=== PATIENT | female | born 1955 | race American Indian/Alaskan Native ===

== ENCOUNTER 2017-05-14 14:04 | Inpatient (IN) | payer MEDICARE, MEDICAID ==
[2017-05-14 14:04] VITALS: BMI 43.2
--- NOTE | 2017-05-14 15:16 | C.PDOC ---
History Of Present Illness <Ciarra Tracy - Last Filed: 05/14/17 19:36> <Wendy Raotoan - Last Filed: 05/14/17 22:02> 61yo female with history of HTN, diabetes, GERD, presents to ED for evaluation of abdominal pain, described as a burning sesnation for the past week. Patient was seen by Dr. Matthews who informed her to come to ER for further evaluation. Patient reports her pain is intermittently present, 15 seconds at a time. She also reports associated intermittent episodes of vomiting, diarrhea and constipation and states over the past 2 days, she has not had any bowel movements. She has no other medical complaints. (Wendy Tracyerie) History Per: Patient History/Exam Limitations: no limitations Onset/Duration Of Symptoms: Days (7) Current Symptoms Are (Timing): Still Present Location Of Pain/Discomfort: Epigastric Quality Of Discomfort: Burning, "Pain" Associated Symptoms: Vomiting, Diarrhea, Constipation Last Bowel Movement: Days Ago (2) Additional History Per: Patient <Ciarra Tracy - Last Filed: 05/14/17 19:36> <Lyla Rao - Last Filed: 05/14/17 22:02> Time Seen by Provider: 05/14/17 14:53 Chief Complaint (Nursing): Abdominal Pain Past Medical History Reviewed: Historical Data, Nursing Documentation, Vital Signs - Medical History PMH: Anxiety, Arthritis, Depression, Diabetes, HTN, Hypercholesterolemia, Sleep Apnea (USES C PAP) Denies: Chronic Kidney Disease Surgical History: No Surg Hx Family History: States: Unknown Family Hx - Social History Hx Tobacco Use: Yes Hx Alcohol Use: Yes Hx Substance Use: Yes - Immunization History Hx Tetanus Toxoid Vaccination: Yes Hx Influenza Vaccination: Yes Hx Pneumococcal Vaccination: Yes <Ciarra Tracy - Last Filed: 05/14/17 19:36> Vital Signs: Last Vital Signs Temp 98.4 F 05/14/17 14:11 Pulse 61 05/14/17 20:56 Resp 18 05/14/17 20:56 BP 131/68 05/14/17 20:56 Pulse Ox 99 05/14/17 20:56 - [facility] Procedures ENDOSC POLYPECTOMY OF LG INTEST (11/06/13) Review Of Systems Except As Marked, All Systems Reviewed And Found Negative. Constitutional: Negative for: Fever, Chills Gastrointestinal: Positive for: Vomiting, Abdominal Pain, Diarrhea, Constipation <Ciarra Tracy - Last Filed: 05/14/17 19:36> Physical Exam - Physical Exam Appears: Non-toxic Skin: Normal Color, Warm Head: Atraumatic, Normacephalic Eye(s): bilateral: Normal Inspection Nose: Normal Neck: Supple Chest: Symmetrical Cardiovascular: Rhythm Regular Respiratory: Normal Breath Sounds Gastrointestinal/Abdominal: Soft, Tenderness (right upper quadrant and epigastric tenderness to palpation) Neurological/Psych: Oriented x3, Normal Speech <Ciarar Tracy - Last Filed: 05/14/17 19:36> ED Course And Treatment - Laboratory Results Result Diagrams: 05/14/17 15:37 05/14/17 15:37 O2 Sat by Pulse Oximetry: 100 (RA) Pulse Ox Interpretation: Normal <Ciarra Tracy Last Filed: 05/14/17 19:36> - Laboratory Results Result Diagrams: 05/14/17 15:37 05/14/17 15:37 Pulse Ox Interpretation: Normal Progress Note: spoke with dr [email or web address]. ok to admit and will see the pt in am <Lyla Rao - Last Filed: 05/14/17 22:02> Medical Decision Making <Ciarra Tracy - Last Filed: 05/14/17 19:36> <Lyla Rao - Last Filed: 05/14/17 22:02> Medical Decision Making: Impression: Abdominal pain Plan: -- Labs -- US Abdomen -- IV Fluids -- Protonix 40 mg IVP -- Toradol 30 mg IVP Time: 1616 HISTORY: epigastric and RUQ pain COMPARISON: None. TECHNIQUE: Sonographic evaluation of the right upper quadrant of the abdomen. FINDINGS: LIVER: Enlarged, measuring 20.1 cm in length. Increased echogenicity of the liver parenchyma. No mass. No intrahepatic bile duct dilatation. GALLBLADDER: Unremarkable. No gallstones. COMMON BILE DUCT: Measures 6 mm. No stones. No dilatation. PANCREAS: Not well-visualized. RIGHT KIDNEY: Measures 9.7 x 4.8 x 4.5 cm in length. Normal echogenicity. No calculus, mass, or hydronephrosis. AORTA: No aneurysmal dilatation. IVC: Unremarkable. OTHER FINDINGS: None . IMPRESSION: Hepatomegaly with steatosis No evidence of cholelithiasis. (Ciarra Tracy) Disposition - Disposition Disposition Time: 19:37 <Ciarra Tracy - Last Filed: 05/14/17 19:36> Discussed With : Criss Bartlett Comment: accepted the pt on his service and took over the care at 9:30 PM Doctor Will See Patient In The: Hospital Counseled Patient/Family Regarding: Studies Performed, Diagnosis - POA Present On Arrival: Poor Glycemic Control <Lyla Rao - Last Filed: 05/14/17 22:02> - Disposition Disposition: HOSPITALIZED Condition: FAIR Forms: [facility] (Faroese) - Clinical Impression Clinical Impression: Abdominal pain, Nausea, Vomiting, Diarrhea - PA / CHIEF OF SAFETY AND PROTECTION / Resident Statement MD/DO has reviewed & agrees with the documentation as recorded. - Scribe Statement The provider has reviewed the documentation as recorded by the Scribe <Ciarra Tracy - Last Filed: 05/14/17 19:36> <Lyla Rao - Last Filed: 05/14/17 22:02> - Scribe Statement Jenifer Haines Provider Scribe Attestation: All medical record entries made by the Scribe were at my direction and personally dictated by me. I have reviewed the chart and agree that the record accurately reflects my personal performance of the history, physical exam, medical decision making, and the department course for this patient. I have also personally directed, reviewed, and agree with the discharge instructions and disposition. (Ciarra Tracy) Physician Patient Turnover Patient Signed Over To: Lyla Rao Handoff Comments: pending CT and dispo <Ciarra Tracy - Last Filed: 05/14/17 19:36> Decision To Admit <Ciarra Tracy - Last Filed: 05/14/17 19:36> - Pt Status Changed To: Hospital Disposition Of: Inpatient - Admit Certification Admit to Inpatient:: After my assessment, the patient will require hospitalization for at least two midnights. This is because of the severity of symptoms shown, intensity of services needed, and/or the medical risk in this patient being treated as an outpatient. - InPatient: Physician Admission Certification:: After my assessment, the patient will require hospitalization for at least two midnights. This is because of the severity of symptoms shown, intensity of services needed, and/or the medical risk in this patient being treated as an outpatient. - . Bed Request Type: Regular Admitting Physician: Criss Bartlett <Lyla Rao - Last Filed: 05/14/17 22:02> - . Patient Diagnosis: Abdominal pain, Nausea, Vomiting, Diarrhea
[2017-05-14] MEDS ORDERED: Sodium Chloride 0.9% 1,000 ML IV STA (15:20)
[2017-05-14] MEDS ORDERED: Sodium Chloride 0.9% 1,000 ML ONE (15:46)
[2017-05-14 15:51] LABS: BASO % 0.4 % (0.0-2.0); EOS # 0.1 K/uL (0.0-0.7); HEMOGLOBIN 12.1 g/dL (11.0-16.0); LYMPH # 2.5 K/uL (1.0-4.3); LYMPH % 36.5 % (20.0-40.0); MEAN CELL VOLUME 85.1 fL (81.0-99.0); MEAN CORPUSCULAR HEMOGLOBIN 27.6 pg (27.0-31.0); MEAN CORPUSCULAR HGB CONC 32.5 g/dL (33.0-37.0); MEAN PLATELET VOLUME 9.3 fL (7.2-11.7); MONO # 0.4 K/uL (0.0-0.8); NEUT # 3.8 K/uL (1.8-7.0); NEUT % 55.1 % (50.0-75.0); RBC 4.38 Mil/uL (3.80-5.20); RED CELL DISTRIBUTION WIDTH 14.7 % (11.5-14.5); WHITE BLOOD COUNT 6.9 K/uL (4.8-10.8)
[2017-05-14 16:05] LABS: SQUAMOUS EPITHIAL 4 /hpf (0-5); URINE BACTERIA RARE (<OCC); URINE BILIRUBIN NEGATIVE (NEGATIVE); URINE BLOOD NEGATIVE (NEGATIVE); URINE CLARITY Clear (Clear); URINE COLOR Yellow (YELLOW); URINE GLUCOSE (UA) NORMAL (Normal); URINE LEUKOCYTE ESTERASE 3+ Leu/uL (Negative); URINE NITRATE NEGATIVE (NEGATIVE); URINE PROTEIN NEGATIVE (NEGATIVE); URINE UROBILINOGEN NORMAL mg/dL (0.2-1.0)
--- NOTE | 2017-05-14 16:18 | US ---
HISTORY: epigastric and RUQ pain COMPARISON: None. TECHNIQUE: Sonographic evaluation of the right upper quadrant of the abdomen. FINDINGS: LIVER: Enlarged, measuring 20.1 cm in length. Increased echogenicity of the liver parenchyma. No mass. No intrahepatic bile duct dilatation. GALLBLADDER: Unremarkable. No gallstones. COMMON BILE DUCT: Measures 6 mm. No stones. No dilatation. PANCREAS: Not well-visualized. RIGHT KIDNEY: Measures 9.7 x 4.8 x 4.5 cm in length. Normal echogenicity. No calculus, mass, or hydronephrosis. AORTA: No aneurysmal dilatation. IVC: Unremarkable. OTHER FINDINGS: None . IMPRESSION: Hepatomegaly with steatosis No evidence of cholelithiasis.
[2017-05-14 16:40] LABS: INR 0.9; PROTHROMBIN TIME 10.5 SECONDS (9.7-12.2)
[2017-05-14 16:48] LABS: ALB/GLOB RATIO 1.1 (1.0-2.1); ALBUMIN 3.9 g/dL (3.5-5.0); ALT/SGPT 36 U/L (9-52); AST/SGOT 33 U/L (14-36); BLOOD UREA NITROGEN 8 mg/dL (7-17); CALCIUM 9.5 mg/dl (8.6-10.4); GFR AFRICAN-AMERICAN > 60; GFR NON-AFRICAN AMERICAN > 60; LIPASE 51 U/L (23-300)
[2017-05-14] MEDS ORDERED: Iodixanol 320 MG/ML 100 ML BOTTLE IV ONE (19:09)
--- NOTE | 2017-05-14 20:48 | CT ---
EXAM: CT Abdomen and Pelvis With Intravenous Contrast CLINICAL HISTORY: 61 years old, female; Pain; Abdominal pain; Generalized; Additional info: Abd pain, vomiting, diarrhea x 1 wk TECHNIQUE: Axial computed tomography images of the abdomen and pelvis with intravenous contrast. All CT scans at this facility use one or more dose reduction techniques, viz.: automated exposure control; ma/kV adjustment per patient size (including targeted exams where dose is matched to indication; i.e. head); or iterative reconstruction technique. Coronal and sagittal reformatted images were created and reviewed. CONTRAST: 100 mL of visipaque 320 administered intravenously. COMPARISON: No relevant prior studies available. FINDINGS: Lower thorax: No acute findings. ABDOMEN: Liver: Fatty infiltration. Gallbladder and bile ducts: Questionable gallstones vs artifact. No significant ductal dilation. Pancreas: Minimal haziness/stranding about head of pancreas/duodenum. No ductal dilation. Spleen: No splenomegaly. Adrenals: No mass. Kidneys and ureters: No mass. No hydronephrosis. Stomach and bowel: No definite mural thickening. No obstruction. Appendix: Normal caliber. No inflammation. PELVIS: Bladder: Unremarkable. Reproductive: Unremarkable as visualized. ABDOMEN and PELVIS: Intraperitoneal space: No significant fluid collection. No free air. Bones/joints: Degenerative changes of spine. No acute fracture. Soft tissues: Tiny umbilical hernia containing fat/sidewall of. Vasculature: Minimal atherosclerotic disease of aorta. No aneurysm. Lymph nodes: No pathologically enlarged lymph nodes. IMPRESSION: 1. Minimal haziness/stranding about head of pancreas/duodenum. Findings may represent pancreatitis and/or duodenitis. Correlate with laboratory values. 2. Incidental/non-acute findings are described above.
[2017-05-14] MEDS ORDERED: HYDROmorphone 1 mg/ml ISec IVP PRN (21:57)
[2017-05-14] MEDS: Dextrose 5%/0.45% NS 1,000 ML IV SCH (22:28)
[2017-05-15] MEDS: Dextrose 5%/0.45% NS 1,000 ML IV SCH ×3 (05:37→22:27)
[2017-05-15 08:07] VITALS: RESP 20
--- NOTE | 2017-05-15 09:10 | CP.PCM.CON ---
History of Present Illness - History of Present Illness History of Present Illness: This is a 61 year old woman with abdominal pain. Patient has a history of colon polyps diagnosed on colonoscopy 11/06/13. In addition, she was evaluated for heartburn with EGD and found to have erosive esophagitis, hiatal hernia and non-erosive gastritis. She was seen with intermittent diarrhea thought to be related to IBS. She presented to the office on the day of admission with a one week history of diarrhea, up to ten times a day, soft to watery, which abated two days prior to admission. She has not had a bowel movement in the past two days. The diarrhea was accompanied by nausea and vomiting. six or seven times a day. She also reports having epigastric pain, burning/cramping, lasting only a few minutes at a time, and recurring every 30 minutes. She denies having rectal bleeding. She denies having heartburn or difficulty swallowing. Evaluation in the ER showed normal blood tests. A sonogram showed fatty liver but no gallstones or biliary dilatation. CT scan showed "minimal stranding about head of pancreas/duodenum." She was admitted for observation. Review of Systems - Review of Systems All systems: reviewed and no additional remarkable complaints except - Constitutional Constitutional: Weight Loss. absent: Anorexia, Chills, Fever - Cardiovascular Cardiovascular: absent: Chest Pain - Respiratory Respiratory: absent: Dyspnea - Gastrointestinal Gastrointestinal: Abdominal Pain, Constipation, Diarrhea, Nausea, Vomiting. 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) - HEENT Hx HEENT Problems: No - RENAL Hx Chronic Kidney Disease: No - ENDOCRINE/METABOLIC Hx Diabetes Mellitus Type 2: Yes - HEMATOLOGICAL/ONCOLOGICAL Hx Blood Disorders: No - INTEGUMENTARY Hx Dermatological Problems: No - MUSCULOSKELETAL/RHEUMATOLOGICAL Hx Arthritis: Yes Hx Falls: No - GASTROINTESTINAL Hx Gastrointestinal Disorders: No Hx Gastroesophageal Reflux: Yes - GENITOURINARY/GYNECOLOGICAL Hx Genitourinary Disorders: No - PSYCHIATRIC Hx Anxiety: Yes Hx Depression: Yes Hx Substance Use: Yes - SURGICAL HISTORY Hx Surgeries: Yes Hx Musculoskeletal Surgery: Yes (RIGHT ROTATOR CUFF REPAIR) Hx Orthopedic Surgery: Yes (RIGHT TRIGGER FINGER RELEASE) Hx Vascular Surgery: Yes (BRAIN ANEURYSM WITH CLIP PLACEMENT) - ANESTHESIA Hx Anesthesia: Yes Hx Anesthesia Reactions: No Hx Malignant Hyperthermia: No Meds Allergies/Adverse Reactions: Allergies Allergy/AdvReac Type Severity Reaction Status Date / Time No Known Allergies Allergy Verified 11/04/13 17:22 - Medications Medications: Current Medications Enoxaparin Sodium (Lovenox) 40 mg SC DAILY [facility] Hydromorphone HCl (Dilaudid) 1 mg IVP Q4H PRN PRN Reason: Pain, severe (8-10) Dextrose/Sodium Chloride (Dextrose 5%/0.45% Ns 1000 Ml) 1,000 mls @ 125 mls/hr IV .Q8H [facility] Last Admin: 05/15/17 05:37 Dose: Not Given Pantoprazole Sodium (Protonix Inj) 40 mg IVP DAILY [facility] Physical Exam - Constitutional Appears: No Acute Distress - Head Exam Head Exam: ATRAUMATIC, NORMOCEPHALIC - Eye Exam Eye Exam: EOMI, PERRL - Neck Exam Neck exam: Negative for: Lymphadenopathy, Thyromegaly - Respiratory Exam Respiratory Exam: NORMAL BREATHING PATTERN. absent: Rales, Rhonchi, Wheezes - Cardiovascular Exam Cardiovascular Exam: REGULAR RHYTHM, +S1, +S2. absent: Gallop, Rubs, Systolic Murmur - GI/Abdominal Exam GI & Abdominal Exam: Normal Bowel Sounds, Soft. absent: Mass, Organomegaly, Tenderness - Rectal Exam Rectal Exam: Deferred - Extremities Exam Extremities exam: Negative for: calf tenderness, pedal edema Results - Vital Signs Recent Vital Signs: Last Vital Signs Temp 98 F 05/15/17 08:06 Pulse 72 05/15/17 08:06 Resp 20 05/15/17 08:06 BP 118/62 05/15/17 08:06 Pulse Ox 96 05/15/17 08:06 - Labs Result Diagrams: 05/14/17 15:37 05/14/17 15:37 Labs: Laboratory Results - last 24 hr 05/14/17 05/14/17 05/14/17 15:37 15:37 15:44 WBC 6.9 RBC 4.38 Hgb 12.1 Hct 37.3 MCV 85.1 MCH 27.6 MCHC 32.5 L RDW 14.7 H Plt Count 314 MPV 9.3 Neut % (Auto) 55.1 Lymph % (Auto) 36.5 [place] % (Auto) 6.0 Eos % (Auto) 2.0 Baso % (Auto) 0.4 Neut # 3.8 Lymph # 2.5 [place] # 0.4 Eos # 0.1 Baso # 0.0 PT INR APTT Sodium 136 Potassium 4.8 Chloride 100 Carbon Dioxide 28 Anion Gap 13 BUN 8 Creatinine 0.8 Est GFR ( Amer) > 60 Est GFR (Non-Af Amer) > 60 POC Glucose (mg/dL) Random Glucose 133 H Calcium 9.5 Total Bilirubin 0.4 AST 33 ALT 36 Alkaline Phosphatase 67 Total Protein 7.4 Albumin 3.9 Globulin 3.5 Albumin/Globulin Ratio 1.1 Lipase 51 Urine Color Yellow Urine Clarity Clear Urine pH 5.0 Ur Specific [place] 1.015 Urine Protein Negative Urine Glucose (UA) Normal Urine Ketones Negative Urine Blood Negative Urine Nitrate Negative Urine Bilirubin Negative Urine Urobilinogen Normal Ur Leukocyte Esterase 3+ H Urine WBC (Auto) 14 H Urine RBC (Auto) 1 Ur Squamous Epith Cells 4 Urine Bacteria Rare 05/14/17 05/15/17 16:26 07:24 WBC RBC Hgb Hct MCV MCH MCHC RDW Plt Count MPV Neut % (Auto) Lymph % (Auto) [place] % (Auto) Eos % (Auto) Baso % (Auto) Neut # Lymph # [place] # Eos # Baso # PT 10.5 INR 0.9 APTT 27 Sodium Potassium Chloride Carbon Dioxide Anion Gap BUN Creatinine Est GFR ( Amer) Est GFR (Non-Af Amer) POC Glucose (mg/dL) 165 H Random Glucose Calcium Total Bilirubin AST ALT Alkaline Phosphatase Total Protein Albumin Globulin Albumin/Globulin Ratio Lipase Urine Color Urine Clarity Urine pH Ur Specific [place] Urine Protein Urine Glucose (UA) Urine Ketones Urine Blood Urine Nitrate Urine Bilirubin Urine Urobilinogen Ur Leukocyte Esterase Urine WBC (Auto) Urine RBC (Auto) Ur Squamous Epith Cells Urine Bacteria Assessment & Plan (1) Abnormal CT of the abdomen Assessment and Plan: CT scan shows haziness around the pancreas, but oral contrast was not administered. Will repeat CT scan with IV and oral contrast. Status: Acute (2) Abdominal pain Assessment and Plan: Pain is intermittent and colicky. The CT scan suggested a possible pancreatic abnormality, but the initial lipase value was normal. Will repeat labs and observe. Status: Acute
[2017-05-15] MEDS: Enoxaparin 40 mg Syringe SC SCH (11:11)
[2017-05-15 11:36] LABS: BASO # 0.1 K/uL (0.0-0.2); BASO % 1.1 % (0.0-2.0); EOS # 0.2 K/uL (0.0-0.7); EOS % 3.3 % (0.0-4.0); HEMOGLOBIN 11.5 g/dL (11.0-16.0); LYMPH # 2.2 K/uL (1.0-4.3); MEAN CELL VOLUME 84.6 fL (81.0-99.0); MEAN CORPUSCULAR HEMOGLOBIN 27.8 pg (27.0-31.0); MEAN CORPUSCULAR HGB CONC 32.9 g/dL (33.0-37.0); MEAN PLATELET VOLUME 8.6 fL (7.2-11.7); MONO # 0.3 K/uL (0.0-0.8); MONO % 6.9 % (0.0-10.0); NEUT # 2.3 K/uL (1.8-7.0); NEUT % 45.7 % (50.0-75.0); NRBC % 0.1 % (0.0-2.0); RBC 4.13 Mil/uL (3.80-5.20); RED CELL DISTRIBUTION WIDTH 14.7 % (11.5-14.5)
[2017-05-15 11:51] LABS: ALB/GLOB RATIO 1.1 (1.0-2.1); ALBUMIN 3.5 g/dL (3.5-5.0); ALT/SGPT 35 U/L (9-52); AMYLASE 56 U/L (30-110); AST/SGOT 42 U/L (14-36); BLOOD UREA NITROGEN 7 mg/dL (7-17); CALCIUM 8.6 mg/dl (8.6-10.4); GFR AFRICAN-AMERICAN > 60; GFR NON-AFRICAN AMERICAN > 60; LIPASE 63 U/L (23-300)
[2017-05-16] MEDS: Dextrose 5%/0.45% NS 1,000 ML IV SCH ×3 (07:36→22:06)
--- NOTE | 2017-05-16 09:03 | CP.PCM.PN ---
Subjective - Date & Time of Evaluation Date of Evaluation: 05/16/17 Time of Evaluation: 09:00 - Subjective Subjective: Patient complains of acid reflux. She states that the abdominal pain has resolved. She had two soft bowel movements since admission, without bleeding. Objective - Vital Signs/Intake and Output Vital Signs (last 24 hours): Temp Pulse Resp BP Pulse Ox 98.6 F 65 20 126/63 95 05/16/17 07:49 05/16/17 07:49 05/16/17 07:49 05/16/17 07:49 05/16/17 07:49 - Medications Medications: Current Medications Enoxaparin Sodium (Lovenox) 40 mg SC DAILY [facility] Last Admin: 05/15/17 11:11 Dose: 40 mg Hydromorphone HCl (Dilaudid) 1 mg IVP Q4H PRN PRN Reason: Pain, severe (8-10) Dextrose/Sodium Chloride (Dextrose 5%/0.45% Ns 1000 Ml) 1,000 mls @ 125 mls/hr IV .Q8H [facility] Last Admin: 05/16/17 07:36 Dose: Not Given Pantoprazole Sodium (Protonix Inj) 40 mg IVP DAILY [facility] Last Admin: 05/15/17 11:11 Dose: 40 mg Pneumococcal Polyvalent Vaccine (Pneumovax 23 Vaccine) 0.5 ml IM .ONCE ONE Stop: 05/17/17 10:01 - Labs Labs: 05/15/17 11:28 05/15/17 11:28 PT 10.5 SECONDS (9.7-12.2) 05/14/17 16:26 INR 0.9 05/14/17 16:26 APTT 27 SECONDS (21-34) 05/14/17 16:26 - Constitutional Appears: No Acute Distress - Head Exam Head Exam: ATRAUMATIC, NORMOCEPHALIC - Eye Exam Eye Exam: EOMI, PERRL - Neck Exam Neck Exam: absent: Lymphadenopathy, Thyromegaly - Respiratory Exam Respiratory Exam: NORMAL BREATHING PATTERN. absent: Rales, Rhonchi, Wheezes - Cardiovascular Exam Cardiovascular Exam: REGULAR RHYTHM, +S1, +S2. absent: Gallop, Rubs, Murmur - GI/Abdominal Exam GI & Abdominal Exam: Soft, Normal Bowel Sounds. absent: Tenderness, Mass, Organomegaly - Rectal Exam Rectal Exam: Deferred - Extremities Exam Extremities Exam: absent: Calf Tenderness, Pedal Edema Assessment and Plan (1) Abnormal CT of the abdomen Assessment & Plan: Repeat CT with attention to the pancreas was postponed because of the recent administration of IV contrast with the first CT. The scan has been scheduled for this morning. If the results are satisfactory, patient may be discharged to be followed up in the office. Status: Acute (2) Abdominal pain Assessment & Plan: Patient states that the abdominal pain has resolved. Status: Acute
[2017-05-16] MEDS: Enoxaparin 40 mg Syringe SC SCH (09:52)
[2017-05-16] MEDS: Pantoprazole 40 mg EC Tab PO SCH ×2 (09:54→17:12)
[2017-05-16] MEDS ORDERED: Metoprolol Succinate 12.5 mg XL PO SCH (16:30)
[2017-05-16] MEDS: Metoprolol Succinate 25 mg XL Tab PO SCH (16:46)
--- NOTE | 2017-05-16 22:01 | HP ---
LOCATION: Room 360. HISTORY OF PRESENT ILLNESS: Ms. Long is a 61-year-old female, who was admitted to the hospital with chief complaint of progressive weakness, fatigue, tiredness, abdominal pain. Has history pancreatitis. PHYSICAL EXAMINATION GENERAL: Patient is awake, alert, oriented. VITAL SIGNS: Temperature 98, pulse 90. HEENT: Within normal limits. NECK: Supple. CHEST: Symmetrical. HEART: Regular. ABDOMEN: Soft. EXTREMITIES: No edema. IMPRESSION AND PLAN: Patient . Patient is to get bedrest, supportive care, continue treatment. Criss Bartlett MD
[2017-05-17] MEDS: Dextrose 5%/0.45% NS 1,000 ML IV SCH ×3 (02:45→22:26)
--- NOTE | 2017-05-17 06:27 | PN ---
DATE: SUBJECTIVE: Ms. Long complains of abdominal pain, nausea. The patient is abdomen, GI evaluation. Criss Bartlett MD
--- NOTE | 2017-05-17 08:59 | CP.PCM.PN ---
Subjective - Date & Time of Evaluation Date of Evaluation: 05/17/17 Time of Evaluation: 08:43 - Subjective Subjective: PGY-[address] Bartlett's Service: Pt seen and examined at bedside. Nursing reports no acute events overnight. Patient denies any abdominal pain, nausea, or vomiting overnight. She states that this AM she had two soft, formed bowel movements without blood. Patient is for CT this morning. Objective - Vital Signs/Intake and Output Vital Signs (last 24 hours): Temp Pulse Resp BP Pulse Ox 98.3 F 66 20 119/75 96 05/17/17 07:20 05/17/17 07:20 05/17/17 07:20 05/17/17 07:20 05/17/17 07:20 Intake and Output: 05/17/17 05/17/17 06:59 18:59 Intake Total 2800 Balance 2800 - Medications Medications: Current Medications Amlodipine Besylate (Norvasc) 10 mg PO DAILY [facility] Last Admin: 05/16/17 16:42 Dose: 10 mg Enoxaparin Sodium (Lovenox) 40 mg SC DAILY [facility] Last Admin: 05/16/17 09:52 Dose: 40 mg Hydrochlorothiazide (Microzide) 12.5 mg PO DAILY [facility] Last Admin: 05/16/17 16:46 Dose: 12.5 mg Hydromorphone HCl (Dilaudid) 1 mg IVP Q4H PRN PRN Reason: Pain, severe (8-10) Dextrose/Sodium Chloride (Dextrose 5%/0.45% Ns 1000 Ml) 1,000 mls @ 125 mls/hr IV .Q8H [facility] Last Admin: 05/17/17 02:45 Dose: 125 mls/hr Lisinopril (Zestril) 40 mg PO DAILY [facility] Last Admin: 05/16/17 16:42 Dose: 40 mg Metformin HCl (Glucophage) 1,000 mg PO BIDAC [facility] Last Admin: 05/17/17 08:00 Dose: 1,000 mg Metoprolol Succinate (Toprol Xl) 25 mg PO DAILY [facility] Last Admin: 05/16/17 16:46 Dose: 25 mg Pantoprazole Sodium (Protonix Ec Tab) 40 mg PO BID [facility] Last Admin: 05/16/17 17:12 Dose: 40 mg Pneumococcal Polyvalent Vaccine (Pneumovax 23 Vaccine) 0.5 ml IM .ONCE ONE Stop: 05/17/17 10:01 Sitagliptin Phosphate (Januvia) 50 mg PO BIDAC [facility] Last Admin: 05/17/17 08:00 Dose: 50 mg - Labs Labs: 05/15/17 11:28 05/15/17 11:28 PT 10.5 SECONDS (9.7-12.2) 05/14/17 16:26 INR 0.9 05/14/17 16:26 APTT 27 SECONDS (21-34) 05/14/17 16:26 - Constitutional Appears: Non-toxic, No Acute Distress, Other (Enlarged body habitus noted) - Head Exam Head Exam: ATRAUMATIC, NORMAL INSPECTION - Eye Exam Eye Exam: EOMI, Normal appearance. absent: Scleral icterus Pupil Exam: PERRL - ENT Exam ENT Exam: Mucous Membranes Moist - Respiratory Exam Respiratory Exam: Clear to Ausculation Bilateral, NORMAL BREATHING PATTERN. absent: Rales, Rhonchi, Wheezes - Cardiovascular Exam Cardiovascular Exam: REGULAR RHYTHM, +S1, +S2 - GI/Abdominal Exam GI & Abdominal Exam: Soft, Normal Bowel Sounds. absent: Tenderness - Extremities Exam Extremities Exam: Normal Inspection. absent: Tenderness - Back Exam Back Exam: absent: CVA tenderness (L), CVA tenderness (R) - Neurological Exam Neurological Exam: Alert, Awake, Oriented x3 - Psychiatric Exam Psychiatric exam: Normal Affect, Normal Mood - Skin Skin Exam: Normal Color, Warm Assessment and Plan - Assessment and Plan (Free Text) Plan: Abdominal Pain Resolved Admit to Med surg US Abd (05/17/2017): fatty liver but no gallstones or biliary dilatation CT Abd/Pelvis: minimal stranding about head of pancreas/duodenum GI dairy consultant, Dr. Blackmon, help appreciated - History of Colonic Polyps - recommend repeat CT Pancreas protocol, if normal can follow up in the office Lipase WNL Dilaudid 1mg Q4H PRN HTN Well controlled Norvasc 10mg PO Daily Microzide 12.5 mg PO Daily Lisinopril 40mg PO Daily Toprol XL 25mg PO Daily Diarrhea Resolved Multiple liquid/soft non-formed BMs as outpatient Diabetes BG elevated over admission Pt on D5//2 NS Metformin 1000mg PO BID Januvia 50mg PO BID f/u A1C, lipid panel GERD Protonix 40mg PO BID Prophylaxis Lovenox 40mg SC Daily Protonix 40mg PO BID SCDs Disposition: Pt for discharge today after CT. Will follow up with Dr. Blackmon in his office, in one week's time. Francis Marinao PGY-2 All medical management per Dr Bartlett
[2017-05-17] MEDS ORDERED: Influenza Vaccine 60 mcg/0.5 mL SYR (4YR UP) IM ONE (10:00)
[2017-05-17] MEDS ORDERED: Pneumococcal 23-Valent Vaccine IM ONE (10:00)
[2017-05-17] MEDS: Enoxaparin 40 mg Syringe SC SCH (10:02)
[2017-05-17] MEDS: Pantoprazole 40 mg EC Tab PO SCH ×2 (10:02→17:57)
[2017-05-17] MEDS: Metoprolol Succinate 25 mg XL Tab PO SCH (10:02)
--- NOTE | 2017-05-17 10:43 | CP.PCM.PN ---
Subjective - Date & Time of Evaluation Date of Evaluation: 05/17/17 Time of Evaluation: 10:40 - Subjective Subjective: Patient states that she has not had any abdominal pain since Wednesday. She denies having nausea and vomiting. She had two soft bowel movements this morning without blood. Objective - Vital Signs/Intake and Output Vital Signs (last 24 hours): Temp Pulse Resp BP Pulse Ox 98.3 F 66 20 119/75 96 05/17/17 07:20 05/17/17 07:20 05/17/17 07:20 05/17/17 07:20 05/17/17 07:20 Intake and Output: 05/17/17 05/17/17 06:59 18:59 Intake Total 2800 Balance 2800 - Medications Medications: Current Medications Amlodipine Besylate (Norvasc) 10 mg PO DAILY [facility] Last Admin: 05/17/17 10:02 Dose: 10 mg Enoxaparin Sodium (Lovenox) 40 mg SC DAILY [facility] Last Admin: 05/17/17 10:02 Dose: 40 mg Hydrochlorothiazide (Microzide) 12.5 mg PO DAILY [facility] Last Admin: 05/17/17 10:02 Dose: 12.5 mg Hydromorphone HCl (Dilaudid) 1 mg IVP Q4H PRN PRN Reason: Pain, severe (8-10) Dextrose/Sodium Chloride (Dextrose 5%/0.45% Ns 1000 Ml) 1,000 mls @ 125 mls/hr IV .Q8H [facility] Last Admin: 05/17/17 02:45 Dose: 125 mls/hr Lisinopril (Zestril) 40 mg PO DAILY [facility] Last Admin: 05/17/17 10:02 Dose: 40 mg Metformin HCl (Glucophage) 1,000 mg PO BIDAC [facility] Last Admin: 05/17/17 08:00 Dose: 1,000 mg Metoprolol Succinate (Toprol Xl) 25 mg PO DAILY [facility] Last Admin: 05/17/17 10:02 Dose: 25 mg Pantoprazole Sodium (Protonix Ec Tab) 40 mg PO BID [facility] Last Admin: 05/17/17 10:02 Dose: 40 mg Sitagliptin Phosphate (Januvia) 50 mg PO BIDAC [facility] Last Admin: 05/17/17 08:00 Dose: 50 mg - Labs Labs: 05/15/17 11:28 05/15/17 11:28 PT 10.5 SECONDS (9.7-12.2) 05/14/17 16:26 INR 0.9 05/14/17 16:26 APTT 27 SECONDS (21-34) 05/14/17 16:26 - Constitutional Appears: No Acute Distress - Head Exam Head Exam: ATRAUMATIC, NORMOCEPHALIC - Eye Exam Eye Exam: EOMI, PERRL - Neck Exam Neck Exam: absent: Lymphadenopathy, Thyromegaly - Respiratory Exam Respiratory Exam: NORMAL BREATHING PATTERN. absent: Rales, Rhonchi, Wheezes - Cardiovascular Exam Cardiovascular Exam: REGULAR RHYTHM, +S1, +S2. absent: Gallop, Rubs, Murmur - GI/Abdominal Exam GI & Abdominal Exam: Soft, Normal Bowel Sounds. absent: Tenderness, Mass, Organomegaly - Rectal Exam Rectal Exam: Deferred - Extremities Exam Extremities Exam: absent: Calf Tenderness, Pedal Edema Assessment and Plan (1) Abnormal CT of the abdomen Assessment & Plan: Repeat CT scan is pending. Patient is cleared for discharged and will be seen in the office in one week. Status: Acute (2) Abdominal pain Assessment & Plan: Abdominal pain has resolved. Patient is cleared for discharge and will be seen in the office in one week. Status: Acute
[2017-05-17 11:56] LABS: BASO # 0.1 K/uL (0.0-0.2); BASO % 0.9 % (0.0-2.0); EOS # 0.1 K/uL (0.0-0.7); EOS % 2.2 % (0.0-4.0); LYMPH # 1.9 K/uL (1.0-4.3); LYMPH % 31.1 % (20.0-40.0); MEAN CELL VOLUME 85.1 fL (81.0-99.0); MEAN CORPUSCULAR HEMOGLOBIN 27.6 pg (27.0-31.0); MEAN CORPUSCULAR HGB CONC 32.5 g/dL (33.0-37.0); MEAN PLATELET VOLUME 8.7 fL (7.2-11.7); MONO # 0.5 K/uL (0.0-0.8); MONO % 7.9 % (0.0-10.0); NEUT # 3.5 K/uL (1.8-7.0); NEUT % 57.9 % (50.0-75.0); NRBC % 0.1 % (0.0-2.0); RBC 4.35 Mil/uL (3.80-5.20); RED CELL DISTRIBUTION WIDTH 14.5 % (11.5-14.5); WHITE BLOOD COUNT 6.1 K/uL (4.8-10.8)
[2017-05-17 12:21] LABS: ALB/GLOB RATIO 1.2 (1.0-2.1); ALBUMIN 3.7 g/dL (3.5-5.0); ALT/SGPT 46 U/L (9-52); AST/SGOT 45 U/L (14-36); BLOOD UREA NITROGEN 7 mg/dL (7-17); CALCIUM 8.8 mg/dl (8.6-10.4); GFR AFRICAN-AMERICAN > 60; GFR NON-AFRICAN AMERICAN > 60; HDL CHOLESTEROL 28 mg/dL (30-70); MAGNESIUM 1.4 mg/dL (1.6-2.3)
[2017-05-17 12:25] LABS: LDL CHOLESTEROL 134 mg/dL (0-129)
[2017-05-17] MEDS ORDERED: Iohexol 240 (50 ml) PO ONE (13:15)
[2017-05-17] MEDS ORDERED: Iohexol 350mg/ml 100 ML ONE (16:35)
[2017-05-18] MEDS: Dextrose 5%/0.45% NS 1,000 ML IV SCH (04:30)
[2017-05-18] MEDS: Enoxaparin 40 mg Syringe SC SCH (10:12)
[2017-05-18] MEDS: Metoprolol Succinate 25 mg XL Tab PO SCH (10:12)
[2017-05-18] MEDS: Pantoprazole 40 mg EC Tab PO SCH (10:12)
--- NOTE | 2017-05-18 11:47 | CP.PCM.PN ---
Subjective - Date & Time of Evaluation Date of Evaluation: 05/18/17 Time of Evaluation: 08:33 - Subjective Subjective: PGY 2 Medicine Note- Dr. Bartlett's service Patient seen and examined in no apparent acute distress. Per nursing, patient was to have pancreatic CT testing performed however patient's IV line was malfunctioning. Patient complained of left upper extremity swelling which she did not have yesterday. Patient pleasant and cooperative. Patient states that she would like to go home after having the CT performed. Spoke at length with patient regarding family history extensive for GI pathologies. Patient states that her mother had stomach cancer. Her brother had colon cancer diagnosed in his forties. Patient states that she has had "issues with her pancreas" in the past. She currently denies abdominal pain, nausea, vomiting, diarrhea, chest pain or subjective fevers or chills at this time. Objective - Vital Signs/Intake and Output Vital Signs (last 24 hours): Temp Pulse Resp BP Pulse Ox 97.6 F 71 20 119/78 99 05/18/17 08:00 05/18/17 08:00 05/18/17 08:00 05/18/17 08:00 05/18/17 08:00 Intake and Output: 05/18/17 05/18/17 06:59 18:59 Intake Total 2600 Output Total 600 Balance 2000 - Medications Medications: Current Medications Amlodipine Besylate (Norvasc) 10 mg PO DAILY [facility] Last Admin: 05/18/17 10:12 Dose: 10 mg Enoxaparin Sodium (Lovenox) 40 mg SC DAILY [facility] Last Admin: 05/18/17 10:12 Dose: 40 mg Hydrochlorothiazide (Microzide) 12.5 mg PO DAILY [facility] Last Admin: 05/18/17 10:12 Dose: 12.5 mg Lisinopril (Zestril) 40 mg PO DAILY [facility] Last Admin: 05/18/17 10:12 Dose: 40 mg [facility] Admin: 05/18/17 08:30 Dose: Not Given Metoprolol Succinate (Toprol Xl) 25 mg PO DAILY [facility] Last Admin: 05/18/17 10:12 Dose: 25 mg Pantoprazole Sodium (Protonix Ec Tab) 40 mg PO BID [facility] Last Admin: 05/18/17 10:12 Dose: 40 mg Sitagliptin Phosphate (Januvia) 50 mg PO BIDAC [facility] Last Admin: 05/18/17 08:30 Dose: Not Given - Labs Labs: 05/17/17 11:41 05/17/17 11:41 PT 10.5 SECONDS (9.7-12.2) 05/14/17 16:26 INR 0.9 05/14/17 16:26 APTT 27 SECONDS (21-34) 05/14/17 16:26 - Constitutional Appears: Non-toxic, No Acute Distress - Head Exam Head Exam: ATRAUMATIC, NORMAL INSPECTION, NORMOCEPHALIC - Eye Exam Eye Exam: EOMI, Normal appearance, PERRL Pupil Exam: NORMAL ACCOMODATION - ENT Exam ENT Exam: Mucous Membranes Moist - Neck Exam Neck Exam: Full ROM - Respiratory Exam Respiratory Exam: NORMAL BREATHING PATTERN. absent: Wheezes - Cardiovascular Exam Cardiovascular Exam: +S1, +S2 - GI/Abdominal Exam GI & Abdominal Exam: Soft, Normal Bowel Sounds - Extremities Exam Extremities Exam: Full ROM, Normal Capillary Refill Additional comments: mild swelling of right upper extremity near midline access site - Back Exam Back Exam: Full ROM - Neurological Exam Neurological Exam: Alert, Awake, Normal Gait, Oriented x3 - Psychiatric Exam Psychiatric exam: Normal Affect, Normal Mood - Skin Skin Exam: Dry, Intact, Normal Color, Warm Assessment and Plan - Assessment and Plan (Free Text) Assessment: Abdominal Pain Resolved. No pain at this time US Abd (05/17/2017): fatty liver but no gallstones or biliary dilatation CT Abd/Pelvis: minimal stranding about head of pancreas/duodenum GI insurance healthcare consultant, Dr. Blackmon, F/U recommendations - History of Colonic Polyps - CT of Pancreas obtained- F/U results outpatient Lipase WNL HTN Cont to monitor Norvasc 10mg PO Daily HCTZ 12.5 mg PO Daily Lisinopril 40mg PO Daily Toprol XL 25mg PO Daily Diarrhea Resolved Multiple liquid/soft non-formed BMs as outpatient Diabetes Metformin 1000mg PO BID- Hold until after CT study Januvia 50mg PO BID- Hold until after CT study A1C 8.0- Will need stricter management outpatient Lipid panel- Triglycerides, LDL elevated; Low HDL. May benefit from statin therapy. Patient to have discussion with primary outpatient doctor. GERD Protonix 40mg PO BID Prophylaxis Lovenox 40mg SC Daily Protonix 40mg PO BID SCDs Discharge Instructions Pt stable for discharge home per Dr. Bartlett She may return to her home medications. She should take fish oil 1 gram daily OTC as outpatient for elevated triglycerides, low HDL. She is to follow up with Dr. Blackmon, her GI doctor, within one week's time at his office. There, she will be given the results of her pancreatic CT. Patient is to return to the ED if symptoms return or worsen. Patient verbalized agreement to these instructions. Prescribed medications: NONE Discussed with attending. All medical management per Dr Bartlett
--- NOTE | 2017-05-18 14:40 | PCM.SURG1 ---
Surgeon's Initial Post Op Note - Surgeon's Notes Surgeon: Brett Wilkerson MD Licensed Weigher: NONE Type of Anesthesia: Local Pre-Operative Diagnosis: Poor venous access Operative Findings: Patent LEFt basilic vein. Post-Operative Diagnosis: Poor venous access Operation Performed: Single lumen picc placement left basilic vein, 39 cm. Tip is in the SVC. Specimen/Specimens Removed: none Estimated Blood Loss: EBL {In ML}: 2 Blood Products Given: N/A Drains Used: No Drains Post-Op Condition: Fair Date of Surgery/Procedure: 05/18/17 Time of Surgery/Procedure: 14:35
[2017-05-18 16:59] VITALS: BP 129/82; PULSE 78; TEMP 98.2; O2SAT 97
--- NOTE | 2017-05-18 17:12 | CT ---
CT pancreatic protocol Indication: Abdominal pain, possible pancreatic mass Technique: Contiguous axial images of the abdomen and pelvis without & with IV contrast utilizing liver protocol. Coronal and Sagittal reformats generated and reviewed. This CT exam was performed using 1 or more of the following dose reduction techniques: Automated exposure control, adjustment of the MAA and/or kV according to patient size, and/or use of iterative reconstruction technique. Contrast: 100 mL Visipaque 320 Radiation dose: Total exam DLP = 2173.31 MGy-cm. Comparison: CT abdomen and pelvis with IV contrast performed 05/14/17 Findings: Visualized portions of the heart appear within normal limits of size. There is no visible consolidation, pleural effusion, or pneumothorax. There is homogeneous enhancement of the pancreas. The uncinate/pancreatic head appears somewhat prominent with slightly abnormal contour, of unclear significance. No pancreatic duct dilatation. No discrete focal pancreatic mass identified. No pancreatic calcifications identified. No peripancreatic inflammatory stranding, fluid collections, or abscess identified. The liver, spleen, kidneys, adrenal glands, and gallbladder appear unremarkable. The stomach is nondistended. The included upper abdominal bowel loops appear within normal limits of caliber without evidence of intestinal obstruction. There is no definite free air. 10 mm fat containing umbilical hernia. Degenerative changes of the spine. Vacuum disc phenomenon at L4-L5. Impression: The uncinate/pancreatic head appears somewhat prominent with slightly abnormal contour, of unclear significance. No discrete focal pancreatic mass is identified. There is homogeneous enhancement of the pancreas. No evidence of pancreatic ductal dilatation. Correlate clinically and suggest follow-up MRI or EUS for further evaluation if indicated.
--- NOTE | 2017-05-20 21:09 | CARD ---
APPROVED REPORT EKG Measurement Heart [id number] <Conclusion> Normal sinus rhythm Normal ECG
--- NOTE | 2017-05-21 10:44 | US ---
Date of procedure: 05/18/2017 Procedure: Ultrasound guidance for vascular access HISTORY: Infection requiring long-term IV antibiotics TECHNIQUE: Following informed consent and procedure time-out, the patient placed supine on the interventional table and the left arm prepped and draped in the usual sterile fashion. Ultrasound showed a patent and compressible basilic vein. After the skin was anesthetized with lidocaine, the basilic vein was accessed with micro micropuncture technique using ultrasound guidance. An image documenting ultrasound guidance for vascular access was permanently saved. IMPRESSION: Ultrasound guidance for vascular access for placement of PICC.
--- NOTE | 2017-05-21 10:45 | RAD ---
PROCEDURE: Date of procedure: 05/18/2017 Procedure: 1. Placement of a left arm PICC with ultrasound and fluoroscopic guidance, CPT 52997 2. PICC tip confirmation with spot radiograph and is in the superior vena cava Medications: 1 percent lidocaine Total Fluoro time: 3.5 seconds Radiation: 5 mGy EBL: 3 cc HISTORY: Infection requiring long-term IV antibiotics TECHNIQUE: Following informed consent and procedure time-out, the patient placed supine on the interventional table and the left arm prepped and draped in the usual sterile fashion. Ultrasound showed a patent and compressible left basilic vein. After the skin was anesthetized with lidocaine, the basilic vein was accessed with micro micropuncture technique using ultrasound guidance. A guidewire was then advanced under fluoroscopic guidance into the superior vena cava. An image documenting ultrasound guidance for vascular access was permanently saved. The length of a single-lumen 4 Ma[place] PICC was trimmed to 39 cm and advanced through a peel-away sheath. The PICC was position with tip of PICC confirm a spot radiograph the superior vena cava. The PICC was secured to the patient's skin. The PICC was flushed. A biopatch and sterile dressing was applied. IMPRESSION: Placement of a single-lumen 4 Maori PICC left basilic vein trimmed to 39 cm. The tip of the PICC is confirmed with spot radiograph and is in the superior vena cava.
--- NOTE | 2017-05-31 10:10 | DS ---
SUMMARY: The patient was admitted to the hospital with chief complaint of generalized weakness, fatigue,tiredness. The patient came to the hospital advised admission. The patient on bedrest, supportive care, IV fluid. With supportive care, the patient showed improvement. Discharged, to be followed up as an outpatient. Criss Bartlett MD
== END 2017-05-18 17:30 | disposition home or self-care (01) | DRG 392 ==
LOC: C.ER 14:04 → C.3T 22:00
PROVIDERS: ADMIT Internal Medicine Pulmonary Disease; ATTEND Internal Medicine Pulmonary Disease
PROC: 02HV33Z Insertion of Infusion Device into Superior Vena Cava, Percutaneous Approach (ICD-10-PCS; principal; 2017-05-18)
DX: R10.9 Unspecified abdominal pain (principal); K76.0 Fatty (change of) liver, not elsewhere classified; E11.9 Type 2 diabetes mellitus without complications; R53.1 Weakness; G47.30 Sleep apnea, unspecified; I10 Essential (primary) hypertension; K21.9 Gastro-esophageal reflux disease without esophagitis; K59.00 Constipation, unspecified; E78.00 Pure hypercholesterolemia, unspecified; Z86.010 Personal history of colon polyps; Z87.19 Personal history of other diseases of the digestive system; Z87.891 Personal history of nicotine dependence; Z80.0 Family history of malignant neoplasm of digestive organs; Z79.84 Long term (current) use of oral hypoglycemic drugs